=== PATIENT | female | born 1960 | race Caucasian/White ===

== ENCOUNTER 2017-04-03 04:28 | Emergency (ER) | payer BC ==
[~2017-04-03] VITALS: Ht 170.2 cm; Wt 108.0 kg
[2017-04-03 04:45] VITALS: BP 132/87
--- NOTE | 2017-04-03 05:01 | PHYS DOC ---
Adult General Chief Complaint Chief Complaint: FLANK PAIN HPI HPI Patient is a 56 year old female who presents with complaint of back pain. Patient states that her symptoms started yesterday but progressively worsened this evening. Patient states that she is having severe pain at this time which she rates 9 out of 10. Patient states initially the pain went across her back. It seems to be more localized on her left side near her left flank. Patient denies any dysuria, foul-smelling urine, or hematuria. Patient also denies any fevers, nausea, vomiting, or abdominal pain currently. Patient states that the pain worsens with movement and when she takes a deep breath. Patient describes the pain as sharp. Review of Systems Review of Systems Constitutional: Denies fever or chills [] Eyes: Denies change in visual acuity, redness, or eye pain [] HENT: Denies nasal congestion or sore throat [] Respiratory: Denies cough or shortness of breath [] Cardiovascular: Denies chest pain or edema [] GI: Denies abdominal pain, nausea, vomiting, bloody stools or diarrhea [] : Denies dysuria or hematuria [] Musculoskeletal: Left-sided low back pain, left flank pain [] Integument: Denies rash or skin lesions [] Neurologic: Denies headache, focal weakness or sensory changes [] Current Medications Current Medications Current Medications Medications (Trade) Dose Ordered Sig/Toby Start Time Stop Time Status Last Admin Dose Admin Ketorolac Tromethamine (Toradol) 60 mg 1X ONCE 04/03/17 05:00 04/03/17 05:01 UNV Orphenadrine Citrate (Norflex) 60 mg 1X ONCE 04/03/17 05:00 04/03/17 05:01 UNV Allergies Allergies Allergies Coded Allergies Type Severity Reaction Last Updated Verified Penicillins Allergy Mild Rash 11/02/16 Yes Sulfa (Sulfonamide Antibiotics) Allergy Unknown 11/02/16 Yes Physical Exam Physical Exam Constitutional: Alert, afebrile, appears in moderate to severe discomfort. [] HENT: Normocephalic, atraumatic, bilateral external ears normal, oropharynx moist, no oral exudates, nose normal. [] Eyes: PERRLA, EOMI, conjunctiva normal, no discharge. [] Neck: Normal range of motion, no tenderness, supple, no stridor. [] Cardiovascular:Heart rate regular rhythm, no murmur [] Lungs & Thorax: Bilateral breath sounds clear to auscultation [] Abdomen: Bowel sounds normal, soft, no tenderness, no masses, no pulsatile masses. [] Skin: Warm, dry, no erythema, no rash. [] Back: No midline tenderness, mild left CVA tenderness and bilateral upper lumbar paraspinous muscle tenderness to palpation. [] Extremities: No tenderness, no cyanosis, no clubbing, ROM intact, no edema. [] Neurologic: Alert and oriented X 3, normal motor function, normal sensory function, no focal deficits noted. [] Current Patient Data Vital Signs Vital Signs Date Time Temp Pulse Resp B/P (MAP) Pulse Ox O2 Delivery O2 Flow Rate FiO2 04/03/17 04:45 98.0 83 18 96 Room Air Lab Results Laboratory Tests Test 04/03/17 05:00 Urine Collection Type Unknown Urine Color Straw Urine Clarity Hazy Urine pH 6.0 Urine Specific Spring 1.025 Urine Protein Trace Urine Glucose (UA) Neg mg/dL Urine Ketones (Stick) Neg mg/dL Urine Blood Trace Urine Nitrite Neg Urine Bilirubin Neg Urine Urobilinogen Dipstick 0.2 mg/dL Urine Leukocyte Esterase Small Urine RBC 3-5 /HPF Urine WBC 5-10 /HPF Urine Squamous Epithelial Cells Mod /LPF Urine Bacteria Few /HPF Urine Mucus Slight /LPF Current Medications Medications (Trade) Dose Ordered Sig/Toby Route PRN Reason Start Time Stop Time Status Last Admin Dose Admin Ketorolac Tromethamine (Toradol) 60 mg 1X ONCE IM 04/03/17 05:30 04/03/17 05:31 DC 04/03/17 05:18 Orphenadrine Citrate (Norflex) 60 mg 1X ONCE IM 04/03/17 05:30 04/03/17 05:31 DC 04/03/17 05:18 Acetaminophen/ Hydrocodone Bitart (Lortab 7.5/325) 1 tab 1X ONCE PO 04/03/17 06:00 04/03/17 06:01 DC 04/03/17 05:53 EKG EKG Not performed [] Radiology/Procedures Radiology/Procedures CT abdomen pelvis without contrast pending [] Course & Med Decision Making Course & Med Decision Making Pertinent Labs and Imaging studies reviewed. (See chart for details) Patient was given IM Norflex and Toradol in the emergency department. Patient's symptoms improving at this time. Patient's UA shows signs of microscopic hematuria and pyuria. Patient will receive CT scan to rule out ureteral stone. Care of patient was signed over to Dr. Cheney at 0610. H&P repeated by this evaluated. I agree with previous evaluation. Symptoms will improve the pain. CT abdomen pelvis, did not reveal evidence acute pathology or kidney stone. Incidental finding of renal cystic lesion. Findings discussed with patient with instructions follow-up with PCP for further evaluation possible tumor. Abx given for tx of early kidney infection, muscle skeletal pain treated. Dragon Disclaimer Dragon Disclaimer This chart was dictated in whole or in part using Voice Recognition software in a busy, high-work load, and often noisy Emergency Department environment. It may contain unintended and wholly unrecognized errors or omissions. Departure Departure: Impression: Primary Impression: Flank pain Referrals: ODALYS BEARD (PCP) SCARLETT MARRERO MD Apr 03, 2017 05:01 NESSA CHENEY DO Apr 03, 2017 07:36
--- NOTE | 2017-04-03 05:09 | ACF ---
Admission Criteria Forms RENAL COLIC AND KIDNEY STONES Clinical Indications for Admission to Inpatient Care ( Place 'X' for any and all applicable criteria): Admission is indicated for ANY ONE of the following (1)(2)(3)(4): [ ]I. Inpatient admission required rather than observation care (Also use Renal Colic and Kidney Stones: Observation Care Criteria as appropriate) because of ANY ONE of the following: [ ]a) Severe pain requiring acute inpatient management [ ]b) Urinary tract infection identified [ ]c) Vomiting that is severe or persistent [ ]d) IV fluid required rather than oral rehydration to replace significant ongoing (eg, for greater than 24 hours) losses (greater than 200 mL/hr or 3 L/m2 per day) [ ]e) Percutaneous or open drainage (eg, abscess, biliary tract) procedures [ ]f) Other condition, treatment or monitoring requiring inpatient admission [ ]II. Impending acute renal failure [ ]III. Bilateral obstruction [ ]IV. Single kidney with obstruction [ ]V. Transplanted kidney with obstruction [ ]. Possible open surgical procedure needed (eg, pyonephrosis, stone removal not amendable to other means) [ ]VII. Hemodynamic instability Extended stay beyond goal length of stay may be needed for(2)(3)(31): [ ]a) Failed initial stone removal (32) [ ]b) Pyonephrosis [ ]c) Obstructive uropathy with urinary tract infection [ ]d) Procedure complications [ ]e) Comorbidities (22) The original [employer] content created by [employer] has been revised. The portions of the content which have been revised are identified through the use of italic text or in bold, and [facility] [facility] has neither reviewed nor approved the modified material. All other unmodified content is copyright [employer]. Please see references footnoted in the original [employer] edition 2016 YANIRA WOLF Apr 03, 2017 05:09
[2017-04-03] MEDS ORDERED: ORPHENADRINE CITRATE 60 MG/2 ML VIAL. IM ONE (05:30)
[2017-04-03] MEDS ORDERED: KETOROLAC 60 MG/2 ML VIAL. IM ONE (05:30)
[2017-04-03 05:52] LABS: BACTERIA,URINE FEW /HPF (0-FEW); BILIRUBIN,URINE NEG (NEG); CLARITY,URINE HAZY; COLOR,URINE STRAW; GLUCOSE,URINE NEG (NEG); NITRITE,URINE NEG (NEG); UROBILINOGEN,URINE 0.2 mg/dL (0.2 mg/dL)
[2017-04-03 05:53] LABS: SQUAMOUS EPITHELIAL CELL,UR MOD /LPF
[2017-04-03] MEDS ORDERED: HYDROcodone/APAP 7.5/325MG 1 TAB TABLET PO ONE (06:00)
[2017-04-03 06:26] LABS: HEMOGLOBIN ISTAT 13.6 gm/dL; POTASSIUM ISTAT 3.7 mmol/L (3.5-5.0)
[2017-04-03 06:40] LABS: CALCIUM 8.7 mg/dL (8.5-10.1); CREATININE 0.9 mg/dL (0.6-1.0); GFR 64.5; POTASSIUM 3.5 mmol/L (3.5-5.1)
--- NOTE | 2017-04-03 06:41 | RAD ---
Examination: CT of the abdomen and pelvis without contrast HISTORY: History of left flank pain COMPARISON: None available Technique: Axial CT images of the abdomen and pelvis are performed without contrast. Coronal and sagittal reformats were performed. Exposure: One or more of the following individualized dose reduction techniques were utilized for this examination: 1. Automated exposure control 2. Adjustment of the mA and/or kV according to patient size 3. Use of iterative reconstruction technique Findings: The visualized bibasilar lungs grossly appears unremarkable. No evidence of free air identified in the abdomen. The evaluation of the solid organs is limited due to lack of IV contrast. Evaluation of the bowel is limited due to lack of oral contrast. The visualized noncontrasted liver, spleen, adrenals grossly appears unremarkable. Cholecystectomy clips identified. The visualized pancreas grossly appears unremarkable. The stomach is mildly distended. The small bowel is nondilated. The appendix is normal. Feces and gas noted in the colon. No evidence of intrarenal collecting system calculi identified. 9 mm exophytic density measuring 8 Hounsfield units identified in the left kidney probably cyst however evaluation is limited without IV contrast. Urinary bladder is mildly distended. The visualized uterus, adnexa grossly appear unremarkable. The caliber of the aorta appears unremarkable. Mild degenerative changes lumbar spine. IMPRESSION: 1. No evidence of intrarenal collecting system calculi. No hydronephrosis. 2. 9 mm cystic hypodensity identified in the left kidney probably a cyst however evaluation limited without contrast. 3. Cholecystectomy changes. Electronically signed by: Emmanuel Lewis MD (04/03/2017 6:38 AM)
[2017-04-03] MEDS ORDERED: CIPROFLOXACIN HCL 500 MG TABLET PO ONE (07:00)
[2017-04-03] MEDS ORDERED: HYDROCORTISONE SOD SUCC/PF 100 MG/2 ML VIAL. IV ONE (07:00)
== END 2017-04-03 06:55 | disposition home or self-care (01) ==
LOC: ER 04:28
DX: R10.9 Unspecified abdominal pain (principal); Z88.0 Allergy status to penicillin; Z88.2 Allergy status to sulfonamides; M54.5 Low back pain
CPT/HCPCS: 36415; 74176; 80048; 81001; 82533; 87086; 96372; 99285; J1885; J2360; 80047

== ENCOUNTER → 2017-04-27 | Outpatient (CLI) | payer BC ==
[2017-04-03 04:45] VITALS: BP 132/87
[~2017-04-27] MED LIST: IOHEXOL 240 MG/ML 50ML VIAL. ONE; IOHEXOL 300 MG/ML 75 ML VIAL. IV ONE
--- NOTE | 2017-04-27 10:26 | RAD ---
CT abdomen/pelvis with IV contrast 04/27/2017 at 0951 hours Indication: Microhematuria with recent UTI. History of cholecystectomy and appendectomy. Comparison: CT abdomen/pelvis 04/03/2017 Technique: Multiple axial CT images of the abdomen and pelvis are performed after the administration of intravenous and oral contrast. Coronal and sagittal reformats are provided. 63 mL of non-ionic contrast was administered. Findings: Lung bases are clear. Heart is normal in size. Liver is normal in appearance. No hepatic masses are identified. Cholecystectomy clips compatible with cholecystectomy. Spleen is nonenlarged. Pancreas appears normal. Adrenal glands are normal. The kidneys enhance symmetrically. There is no hydronephrosis. No contour deforming renal mass. Ureters and urinary bladder are normal in appearance. The abdominal aorta is normal in course and caliber. There are no enlarged lymph nodes in abdomen or pelvis. There is no free intraperitoneal air. No free fluid. Small and large bowel are normal in caliber. No pericolonic inflammatory changes are present. Appendix is surgically absent. No suspicious osseous lesions are identified. No adnexal masses are present. Impression: No acute abnormality is identified within the abdomen or pelvis. PQRS Compliance Statement: One or more of the following individualized dose reduction techniques were utilized for this examination: 1. Automated exposure control 2. Adjustment of the mA and/or kV according to patient size 3. Use of iterative reconstruction technique
== END | disposition home or self-care (01) ==
LOC: CT 07:59
PROVIDERS: ATTEND Nurse Practitioner Family
DX: N39.0 Urinary tract infection, site not specified (principal); R31.29 Other microscopic hematuria; Z90.49 Acquired absence of other specified parts of digestive tract
CPT/HCPCS: 74177; Q9966; Q9967

== ENCOUNTER → 2018-01-26 | Outpatient (CLI) | payer BC ==
--- NOTE | 2018-01-26 16:19 | RAD ---
Right shoulder, 3 views, 01/26/2018: History: Shoulder pain No fracture or dislocation is identified. There is mild spurring along the glenoid rim. The periarticular soft tissues are unremarkable. IMPRESSION: No acute bony abnormality is detected.
--- NOTE | 2018-01-26 16:20 | RAD ---
Left knee, 2 views, 01/26/2018: History: Knee pain No fracture or dislocation is identified. There is mild spurring medially at the knee joint and at the patellofemoral articulation. No significant joint effusion is evident. IMPRESSION: 1. Mild degenerative change. 2. No acute bony abnormality is detected.
== END | disposition home or self-care (01) ==
LOC: DXRAD 15:27
PROVIDERS: ATTEND Nurse Practitioner Family
DX: M17.12 Unilateral primary osteoarthritis, left knee (principal); M25.511 Pain in right shoulder
CPT/HCPCS: 73030; 73560

== ENCOUNTER → 2018-12-02 | Outpatient (CLI) | payer BC ==
--- NOTE | 2018-12-06 12:40 | RAD ---
DATE: 12/02/2018 EXAM: MAMMO ELENA SCREENING BILATERAL HISTORY: Routine screening COMPARISON: 01/30/2015 This study was interpreted with the benefit of Computerized Aided Detection (CAD). Breast Density: SCATTERED The breast parenchyma shows scattered fibroglandular densities. Breast parenchyma level B. FINDINGS: 2-D and 3-D tomosynthesis imaging was performed in CC and MLO projections. There is a 4 mm nodule in the inferior aspect of the right breast at the 6:30 location, best seen on the cc views.It is not clearly visible on the previous cc views. Comparison to old oblique images suggests that it may have been present on the 2014 exam. No other new or enlarging breast densities are seen. Scattered benign type calcifications are present. No suspicious microcalcifications are evident. IMPRESSION: Small right breast nodule as above. Sonographic evaluation is suggested. BI-RADS CATEGORY: 0 INCOMPLETE: NEEDS ADDITIONAL IMAGING EVALUATION AND/OR PRIOR MAMMOGRAMS FOR COMPARISON. RECOMMENDED FOLLOW-UP: ADD ADDITIONAL IMAGING PQRS compliance statement: Patient information was entered into a reminder system with a target due date for the next mammogram. Mammography is a sensitive method for finding small breast cancers, but it does not detect them all and is not a substitute for careful clinical examination. A negative mammogram does not negate a clinically suspicious finding and should not result in delay in biopsying a clinically suspicious abnormality. "Our facility is accredited by the [employer] Mammography Program."
== END | disposition home or self-care (01) ==
LOC: MAMMO 11:40
PROVIDERS: ATTEND Physician Assistant
DX: Z12.31 Encounter for screening mammogram for malignant neoplasm of breast (principal); N63.13 Unspecified lump in the right breast, lower outer quadrant
CPT/HCPCS: 77063; 77067

== ENCOUNTER → 2018-12-09 | Outpatient (CLI) | payer BC ==
--- NOTE | 2018-12-09 14:06 | RAD ---
Right breast ultrasound, 12/09/2018: History: Suspicious screening study The screening mammograms from 12/02/2018 demonstrated a small opacity at the 6:30 location in the right breast. Today we performed a targeted ultrasound exam of that region. The fibroglandular pattern is heterogeneous. At the 6:30 location approximately 4 cm from the nipple a tiny 2 mm hypoechoic structure was identified. It is difficult to characterize due to its small size. No posterior acoustic shadowing or internal vascularity is seen. This may be a tiny complicated cyst. No other abnormality is evident in this region. IMPRESSION: Tiny probably benign hypoechoic right breast nodule identified sonographically which likely corresponds to the mammographic finding, although that cannot be stated with certainty. Right breast ultrasound and right mammography in 6 months is suggested BI-RADS 3-probably benign findings
== END | disposition home or self-care (01) ==
LOC: US 12:52
PROVIDERS: ATTEND Physician Assistant
DX: R92.8 Other abnormal and inconclusive findings on diagnostic imaging of breast (principal)
CPT/HCPCS: 76641

== ENCOUNTER → 2019-06-09 | Outpatient (CLI) | payer BC ==
--- NOTE | 2019-06-09 14:12 | RAD ---
Indication: Right breast six-month follow-up. TECHNIQUE: Limited right breast ultrasound. COMPARISON: Previous ultrasound from 12/09/2018. FINDINGS: Oval-shaped hypoechoic lesion is seen at 6:30 position approximately 4 cm from the nipple measuring 0.2 x 0.1 x 0.2 cm which corresponds to previously seen abnormality. However there is a new questionable hypoechoic lesion at 6:45 PM approximately 4 cm from the nipple adjacent to the above-mentioned hypoechoic nodule measuring 0.3 x 0.3 x 0.3 cm without posterior acoustic characteristics but of ill-defined margins. IMPRESSION: Stable hypoechoic mass seen on previous exam likely complex cyst. Questionable new lesion adjacent to the above-mentioned complex cyst too small to accurately characterize. BI-RADS 3: Probably benign. Follow-up right breast ultrasound in 3 months recommended. Electronically signed by: Kvng Min DO (06/09/2019 2:09 PM) [facility]
--- NOTE | 2019-06-09 14:15 | RAD ---
Indication: Six-month right breast follow-up TECHNIQUE: 2-D and 3-D right breast mammogram COMPARISON: There is mammogram from 12/02 62,008. FINDINGS: Redemonstrated is a 3 mm round mass in the inferior right breast. IMPRESSION: Stable right lower breast nodular mass. Please see ultrasound report done on the same day. BI-RADS 3: Probably benign. Follow-up ultrasound of the right breast in 3 months recommended.
--- NOTE | 2019-06-09 14:34 | RAD ---
PROCEDURE: CHEST PA LATERAL CLINICAL INDICATION: Chest wall pain. COMPARISON: None FINDINGS: No pneumothorax identified. Cardiac and mediastinal contours unremarkable. No pulmonary consolidation or acute airspace disease. No acute osseous abnormalities identified. IMPRESSION: No pulmonary consolidation or acute airspace disease. Electronically signed by: Kvng Min DO (06/09/2019 2:31 PM) [facility]
== END | disposition home or self-care (01) ==
LOC: MAMMO 13:04
PROVIDERS: ATTEND Physician Assistant Medical
DX: N63.13 Unspecified lump in the right breast, lower outer quadrant (principal); N64.89 Other specified disorders of breast; R07.89 Other chest pain
CPT/HCPCS: 71046; 76641; 77065; G0279; 77061

== ENCOUNTER → 2019-09-12 | Outpatient (CLI) | payer BC ==
--- NOTE | 2019-09-15 14:45 | RAD ---
STUDY: Right breast diagnostic sonography INDICATION: Follow-up probably benign abnormality of the right breast. COMPARISON: Correlation is made to the right breast diagnostic mammogram and ultrasound from 06/09/2019. TECHNIQUE: Targeted diagnostic sonography of the right breast. FINDINGS: Within the right breast 4 cm from the nipple at the 7:00 location, redemonstrated well-circumscribed, ovoid and avascular probable complex cyst measuring 0.3 x 0.2 x 0.3 cm. This was measured at 0.2 x 0.2 x 0.1 cm previously with the difference in size favored mostly technical and visually this structure is no different. The previously seen indeterminate structure at the 645 location 4 cm from the nipple is no longer identified. No newly seen abnormality throughout the evaluated portion of the right breast. IMPRESSION: No significant interval change in size of a favored complex, very small cyst within the right breast 7:00 location 4 cm from the nipple. Given no change and the lack of suspicious features, this is considered benign. The previously described indeterminant focus at the 645 location of the right breast is no longer seen. BI-RADS Category 2: Benign. Recommendation: Bilateral screening mammography in May 2020.
== END | disposition home or self-care (01) ==
LOC: US 12:58
PROVIDERS: ATTEND Physician Assistant
DX: N60.01 Solitary cyst of right breast (principal)
CPT/HCPCS: 76641